=== PATIENT | male | born 1945 | race Caucasian/White ===

== ENCOUNTER → 2018-07-14 | Outpatient (REF) | payer MEDICARE, OTHER ==
[2018-07-14 19:28] LABS: APPEARANCE, URINE CLEAR (CLEAR); BACTERIA, URINE AUTO NEGATIVE (NEGATIVE); BILIRUBIN, URINE AUTO NEGATIVE (NEGATIVE); BLOOD, URINE BLOOD NEGATIVE (NEGATIVE); COLOR, URINE YELLOW (YELLOW); GLUCOSE, URINE (UA) AUTO NEGATIVE (NEGATIVE); KETONE, URINE AUTO NEGATIVE (NEGATIVE); LEUKOCYTE ESTERASE, URINE AUTO NEGATIVE (NEGATIVE); NITRITE, URINE AUTO NEGATIVE (NEGATIVE); PROTEIN, URINE AUTO NEGATIVE (NEGATIVE); RBC, URINE AUTO 1 /HPF (0-3); SPECIFIC GRAVITY URINE AUTO 1.006 (1.002-1.035); SQUAMOUS EPITHELIAL CELL UR AU 0 /HPF (0-6); UROBILINOGEN, URINE AUTO 0.2 mg/dL (0.0-2.0); WBC, URINE AUTO 0 /HPF (0-3)
== END ==
LOC: M SMT 16:49
PROVIDERS: ATTEND Nurse Practitioner Women's Health
DX: R39.11 Hesitancy of micturition (principal)
CPT/HCPCS: 51798; 81001; 87086; G0463

== ENCOUNTER 2018-09-23 10:06 | Day surgery (SDC) | payer MEDICARE, OTHER ==
[~2018-09-23] VITALS: Ht 172.7 cm; Wt 84.4 kg
[~2018-09-23 10:06] MED LIST: ACET1TAB55 PO; ASPI81TA52 PO; BACL10TA2 PO; LOSA25TA14 PO; META0.52 PO; META28.32 PO; OMEG1CAP16 PO; OMEP20CA3 PO; ROSU40TA3 PO; VITA100067 PO
[2018-09-23] MEDS ORDERED: NS 1,000 ML IV ONE (11:30)
[2018-09-23] MEDS ORDERED: PROPOFOL 500 MG/50 ML VIAL As Ordered ONE (12:00)
[2018-09-23] MEDS ORDERED: LIDOCAINE 2% INJ 100 MG/5 ML SDV (FOR ANES.) As Ordered ONE (12:00)
[2018-09-23] MEDS ORDERED: fentaNYL 100 MCG/2 ML INJECTION (J3010) As Ordered ONE (12:11)
--- NOTE | 2018-09-23 12:15 | ROOR ---
Patient Name: Spencer Howell Procedure Date: 09/23/2018 11:58 AM Date of : 1945 Age: 73 Room: [facility] Gender: Male Note Status: Finalized Procedure: Upper GI endoscopy Indications: Heartburn Providers: Vinnie MCNEIL MD Referring MD: GET DEUTSCH MD Requesting Provider: Medicines: Monitored Anesthesia Care Complications: No immediate complications. Procedure: Pre-Anesthesia Assessment: - The heart rate, respiratory rate, oxygen saturations, blood pressure, adequacy of pulmonary ventilation, and response to care were monitored throughout the procedure. The Endoscope was introduced through the mouth, and advanced to the second part of duodenum. The upper GI endoscopy was accomplished without difficulty. The patient tolerated the procedure well. Findings: , white plaques were found in the upper third of the esophagus and in the middle third of the esophagus. The exam of the esophagus was otherwise normal. The entire examined stomach was normal. The examined duodenum was normal. Impression: - Esophageal plaques (few scattered) were found, consistent with candidiasis. - Esophagus is otherwise normal. - Normal stomach. - Normal examined duodenum. - No specimens collected. Recommendation: - Nystatin suspension 100,000 units PO QID for 1 week. - (the script was sent to your pharmacy on file) Vinnie Mcneil MD Vinnie MCNEIL MD 09/23/2018 12:14:31 PM This report has been signed electronically. Number of Addenda: 0 Note Initiated On: 09/23/2018 11:58 AM Estimated Blood Loss: Estimated blood loss: none.
--- NOTE | 2018-09-23 12:31 | ROOR ---
Patient Name: Spencer Howell Procedure Date: 09/23/2018 12:00 PM Date of : 1945 Age: 73 Room: [facility] Gender: Male Note Status: Finalized Procedure: Colonoscopy Indications: Screening for colorectal malignant neoplasm Providers: Vinnie MCNEIL MD Referring MD: GET DEUTSCH MD Requesting Provider: Medicines: Monitored Anesthesia Care Complications: No immediate complications. Procedure: Pre-Anesthesia Assessment: - The heart rate, respiratory rate, oxygen saturations, blood pressure, adequacy of pulmonary ventilation, and response to care were monitored throughout the procedure. The Colonoscope was introduced through the anus and advanced to the cecum, identified by appendiceal orifice and ileocecal valve. The colonoscopy was performed without difficulty. The patient tolerated the procedure well. The quality of the bowel preparation was good. Findings: The perianal and digital rectal examinations were normal. Two sessile polyps were found in the cecum. The polyps were diminutive in size. These polyps were removed with a jumbo cold forceps. Resection and retrieval were complete. Mild sigmoid diverticulosis and small internal hemorrhoids. The exam was otherwise without abnormality on direct and retroflexion views. Impression: - Two diminutive polyps in the cecum, removed with a jumbo cold forceps. Resected and retrieved. - Mild sigmoid diverticulosis and small internal hemorrhoids. - The examination was otherwise normal on direct and retroflexion views. Recommendation: - Repeat colonoscopy in 5 years for surveillance. Vinnie Mcneil MD Vinnie MCNEIL MD 09/23/2018 12:31:36 PM This report has been signed electronically. Number of Addenda: 0 Note Initiated On: 09/23/2018 12:00 PM Estimated Blood Loss: Estimated blood loss: none.
[2018-09-23 12:50] VITALS: BP 129/79
== END 2018-09-23 13:06 | disposition home or self-care (01) ==
LOC: M OPP 10:06
PROVIDERS: ATTEND Internal Medicine Gastroenterology
DX: D12.0 Benign neoplasm of cecum (principal); K57.30 Diverticulosis of large intestine without perforation or abscess without bleeding; K64.8 Other hemorrhoids; R12 Heartburn; K22.9 Disease of esophagus, unspecified; Z12.11 Encounter for screening for malignant neoplasm of colon
CPT/HCPCS: 43235; 45380; 88305; J3010

== ENCOUNTER 2018-10-10 07:01 | Emergency (ER) | payer MEDICARE, OTHER ==
[~2018-10-10] VITALS: Ht 172.7 cm; Wt 86.4 kg
[2018-10-10] MEDS ORDERED: TRAM50TA2 (08:10)
[2018-10-10] MEDS ORDERED: CELE1CAP9 (08:10)
--- NOTE | 2018-10-10 09:53 | REP ---
MR LUMBAR SPINE WITHOUT CONTRAST: HISTORY: Back pain. Decreased signal intensity on T2-weighted images is present in the L2-3 through L5-S1 intervertebral discs. The L2-3 through L4-5 intervertebral discs are decreased in height. These findings are consistent with disc degeneration. There is no disc bulge or herniation at the L1-2 level. There is hypertrophy of thel ligamenta flava and posterior articulating facets. The L1 nerves exit the neural foramina without compression. A diffuse disc bulge is present at the L2-3 level. There is hypertrophy of the ligamenta flava and posterior articulating facets. These findings produce minimal central canal stenosis. The L2 nerves exit the neural foramina without compression. A diffuse disc bulge and small central disc protrusion are present at the L3-4 level. There is hypertrophy of the ligamenta flava and posterior articulating facets. These findings produce mild central canal stenosis. The L3 nerves exit the neural foramina without compression. A diffuse disc bulge is present at the L4-5 level. There is hypertrophy of the ligamenta flava and posterior articulating facets. These findings produce mild central canal stenosis. The L4 nerves exit the neural foramina without compression. A diffuse disc bulge and mild size disc extrusion central and eccentric to the left are present at the L5-S1 level. There is inferior migration of disc material. There is mild compression of the thecal sac and S1 nerves greater on the left than the right as they exit the thecal sac. There is hypertrophy of the ligamenta flava and posterior articulating facets. The L5 nerves exit the neural foramina without compression. The conus medullaris is normal in appearance terminating at the level of the T12-L1 intervertebral disc. Increased signal intensity on T2-weighted images is present in the end plates of the L4 and 5 vertebral bodies. This represents degenerative changes. IMPRESSION: 1. Minimal central canal stenosis at the L2-3 level secondary to disc bulge, ligamentous, and facet hypertrophy. 2. Mild central canal stenosis at the L3-4 level secondary to disc bulge, disc protrusion, ligamentous and facet hypertrophy. 3. Mild central canal stenosis at the L4-5 level secondary to disc bulge, ligamentous and facet hypertrophy. 4. Diffuse disc bulge and mild size disc extrusion at the L5-S1 level with mild compression of the thecal sac and S1 nerves greater on the left than on the right as they exit the thecal sac. Electronically Signed by Prosper Simon MD 10/10/2018 09:58 A
[2018-10-10] MEDS: dexameTHASONE 20 MG/5 ML VIAL (J1100) IM ONE (10:05)
[2018-10-10 11:16] VITALS: BP 168/79
== END 2018-10-10 11:25 | disposition home or self-care (01) ==
LOC: M ED 07:01
DX: M51.26 Other intervertebral disc displacement, lumbar region (principal); G89.29 Other chronic pain; I10 Essential (primary) hypertension; G47.33 Obstructive sleep apnea (adult) (pediatric); Z79.899 Other long term (current) drug therapy; Z79.82 Long term (current) use of aspirin
CPT/HCPCS: 72148; 96372; 99283; J1100

== ENCOUNTER → 2022-11-14 | Outpatient (CLI) | payer MEDICARE, OTHER ==
[~2022-11-14] MED LIST changes: +CELE1CAP9; +LOSA25TA13 PO; -LOSA25TA14 PO; +OMEP1CAP73 PO; -OMEP20CA3 PO; -ROSU40TA3 PO; +ROSU40TA4 PO; +TRAM50TA2
== END ==
LOC: M PLAIMG 10:09
PROVIDERS: ATTEND Internal Medicine
DX: R91.8 Other nonspecific abnormal finding of lung field (principal); J43.9 Emphysema, unspecified; J47.9 Bronchiectasis, uncomplicated; J84.10 Pulmonary fibrosis, unspecified; I70.0 Atherosclerosis of aorta; I25.10 Atherosclerotic heart disease of native coronary artery without angina pectoris

== ENCOUNTER 2024-02-18 09:36 | Day surgery (SDC) | payer MEDICARE, OTHER ==
[~2024-02-18] VITALS: Ht 175.3 cm; Wt 85.6 kg
[~2024-02-18 09:36] MED LIST changes: +B-12100010 PO; +CELE0.09; -CELE1CAP9; +ECOT81TA5 PO; +EZET10TA58 PO; +LIDOCAINE 2% 100MG/5ML SDV (FOR ANES.) As Ordered ONE; +MAGN400C PO; +NEUR300C PO; +NS 1,000 ML IV ONE; -ROSU40TA4 PO; +ROSU40TA63 PO; +VITA100093 PO; +ZINC50TA4 PO; +propofoL 200 MG/20 ML VIAL As Ordered ONE
[2024-02-18] MEDS ORDERED: fentaNYL 100 MCG/2 ML INJECTION As Ordered ONE (11:27)
[2024-02-18] MEDS ORDERED: METOPROLOL 5 MG/5 ML VIAL As Ordered ONE (11:36)
[2024-02-18 12:36] VITALS: TEMP 97.5
[2024-02-18 12:57] VITALS: BP 146/70; O2SAT 96
== END 2024-02-18 13:09 | disposition home or self-care (01) ==
LOC: M OPP 09:36
PROVIDERS: ATTEND Internal Medicine Gastroenterology
DX: Z12.11 Encounter for screening for malignant neoplasm of colon (principal); Z86.010 Personal history of colon polyps; D12.3 Benign neoplasm of transverse colon; K64.8 Other hemorrhoids; K57.30 Diverticulosis of large intestine without perforation or abscess without bleeding; R12 Heartburn; Z95.5 Presence of coronary angioplasty implant and graft; G47.30 Sleep apnea, unspecified; Z99.89 Dependence on other enabling machines and devices; I25.119 Atherosclerotic heart disease of native coronary artery with unspecified angina pectoris; Z79.02 Long term (current) use of antithrombotics/antiplatelets; Z79.82 Long term (current) use of aspirin; Z79.899 Other long term (current) drug therapy
CPT/HCPCS: 43235; 45385; 88305; J3010